=== PATIENT | male | born 1945 | race Caucasian/White ===

== ENCOUNTER 2017-02-24 13:28 | Emergency (ER) | payer MEDICARE, OTHER ==
[2017-02-24] MEDS ORDERED: Metoprolol Tartrate 5 MG/5 ML SDV IVPUSH ONE (13:43)
[2017-02-24] MEDS ORDERED: Famotidine 20 MG/2 ML SDV IVPUSH ONE (13:43)
--- NOTE | 2017-02-24 13:43 | EDM.PDOC ---
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 portable, shows evidence of moderate cardiomegaly associated with moderate COPD changes and probable pulmonary hypertension with mild centralized CHF. Surgical clips noted in the epigastric region with additional status post medial sternotomy. No evidence of significant pulmonary infiltrates, pneumothorax, etc. Departure - Departure Time of Disposition: 18:30 Disposition: DC/Tfer to [facility] 02 Reason for Transfer *Q: Other (cardiology consultation and workup) Condition: Fair Clinical Impression: D-dimer, elevated, IDDM (insulin dependent diabetes mellitus), Hyperuricemia, Hypomagnesemia, Hypoalbuminemia Chest pain Qualifiers: Chest pain type: chest pain due to myocardial ischemia Ischemic chest pain type : unstable angina pectoris Qualified Code(s): I20.0 - Unstable angina Coronary artery disease Qualifiers: Coronary Disease-Associated Artery/Lesion type: bypass graft, autologous vein Associated angina: with unstable angina Qualified Code(s): I25.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 COPD (chronic obstructive pulmonary disease) Qualifiers: COPD type: emphysema Emphysema type: panlobular Qualified Code(s): J43.1 - Panlobular emphysema CHF (congestive heart failure) Qualifiers: Congestive heart failure type: unspecified congestive heart failure type Congestive heart failure chronicity: acute on chronic Qualified Code(s): I50.9 - Heart failure, unspecified Referrals: Sheets-Marsha Vallejo MD [Primary Care Provider] - Forms: ED Department Discharge, Interfacility Transfer EMTALA - Problem List & Annotations (1) Chest pain SNOMED Code(s): 60883588 Code(s): R07.9 - CHEST PAIN, UNSPECIFIED Status: Acute Priority: High Current Visit: Yes Onset Date: 02/24/17 Annotation/Comment:: Chest pain protocol initiated immediately upon patient's arrival to the emergency room. No additional nitroglycerin was given secondary to patient's hypotension with low- dose IV Lopressor given with caution secondary to his cardiac arrhythmia and anginal complaints. Blood pressures remain stable during emergency room care and were improved prior to transfer. Telephone consultation at 15:00 hours with [facility] with subsequent additional telephone consultation at 15:[address] White, hospitalist at [facility], who does accept the patient for direct admission, with no further treatment recommendations given. He is aware about our lack of ambulance availability secondary to another patient being transferred out for cardiac problems. No sequelae from delay in ambulance transfer with safety council director accompaniment. Note that the patient wants to be admitted to a longterm in [place] at discharge so that he can be closer to his son who lives in [place]. He did give up his longterm bed here in [place] Qualifiers: Chest pain type: chest pain due to myocardial ischemia Ischemic chest pain type: unstable angina pectoris Qualified Code(s): I20.0 - Unstable angina (2) CHF (congestive heart failure) SNOMED Code(s): 50349832 Code(s): I50.9 - HEART FAILURE, UNSPECIFIED Status: Chronic Priority: High Current Visit: Yes Onset Date: 02/24/17 Annotation/Comment:: Consider cardiology consultation, echocardiogram, possible repeat heart catheterization, etc. with last heart catheterization about one year ago in [place]. IV Lasix therapy was held until patient's blood pressures improved during the later phases of emergency room care Qualifiers: Congestive heart failure type: unspecified congestive heart failure type Congestive heart failure chronicity: acute on chronic Qualified Code(s): I50.9 - Heart failure, unspecified (3) COPD (chronic obstructive pulmonary disease) SNOMED Code(s): 25208130 Code(s): J44.9 - CHRONIC OBSTRUCTIVE PULMONARY DISEASE, UNSPECIFIED Status : Acute Priority: High Current Visit: Yes Annotation/Comment:: Nebulizer treatment given in the emergency room with some improvement of patient's symptoms. No apparent recent fever or other true bronchitic type symptoms Qualifiers: COPD type: emphysema Emphysema type: panlobular Qualified Code(s): J43.1 - Panlobular emphysema (4) Coronary artery disease SNOMED Code(s): 91857549 Code(s): I25.10 - ATHSCL HEART DISEASE OF [place] CORONARY ARTERY W/O ANG PCTRS Status: Chronic Priority: High Current Visit: Yes Annotation/ Comment:: Note significant heart disease as above. 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 IV access was extremely difficult to obtain and is not suitable for CTA of the chest at our facility. Possible VQ scan at accepting facility. Previous history of recurrent DVTs and PEs as above. Consider venous Doppler studies of the lower extremities (6) Hyperuricemia SNOMED Code(s): 63389452 Code(s): E79.0 - HYPERURICEMIA W/O SIGNS OF INFLAM ARTHRIT AND TOPHACEOUS DIS Status: Acute Priority: Medium Current Visit: Yes Onset Date: Annotation/Comment:: Newly diagnosed. 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 DIRECTED EKG Documentation Completion [RC] ASDIRECTED Oxygen Therapy, ED [RC] CONTINUOUS Peripheral IV Care [RC] . DIRECTED Pulse Oximetry [RC] CONTINUOUS Up With Assistance [RC] PFP Vital Signs [RC] PFP Chest 1V Frontal [CR] Stat Sodium Chloride 0.9% [Saline Flush] 10 ml FLUSH ASDIRECTED PRN Obtain Past Medical Record [OM.PC] Urgent Peripheral IV Insertion Adult [OM.PC] Stat Resuscitation Status Stat 02/24/17 14:31 RT Aerosol Therapy [RC] ASDIRECTED 02/24/17 Breakfast Nothing per Oral Now Diet [DIET] - Assessment/Plan Last 24 Hours: My Active Orders 02/24/17 13:43 Cardiac Monitoring [RC] . DIRECTED EKG Documentation Completion [RC] ASDIRECTED Oxygen Therapy, ED [RC] CONTINUOUS Peripheral IV Care [RC] . DIRECTED Pulse Oximetry [RC] CONTINUOUS Up With Assistance [RC] PFP Vital Signs [RC] PFP Chest 1V Frontal [CR] Stat Sodium Chloride 0.9% [Saline Flush] 10 ml FLUSH ASDIRECTED PRN Obtain Past Medical Record [OM.PC] Urgent Peripheral IV Insertion Adult [OM.PC] Stat Resuscitation Status Stat 02/24/17 14:31 RT Aerosol Therapy [RC] ASDIRECTED 02/24/17 Breakfast Nothing per Oral Now Diet [DIET] Assessment:: As above Plan: As above. Extensive precautions were given to the patient, who is in agreement with the treatment plan.
[2017-02-24] MEDS: Sodium Chloride 0.9% 10 ML Syringe FLUSH PRN ×3 (14:07→16:50)
[2017-02-24] MEDS ORDERED: Albuterol/Ipratropium 3.0-0.5 MG/3 ML Neb Soln NEB ONE (14:31)
[2017-02-24] MEDS ORDERED: Budesonide 0.5 MG/2 ML Neb Susp NEB ONE (14:31)
[2017-02-24 14:40] LABS: CHLORIDE,CL 95 mmol/L (98-107); SODIUM,NA 138 mmol/L (136-145)
[2017-02-24] MEDS ORDERED: Morphine 10 MG/ML Syringe IVPUSH ONE (15:00)
[2017-02-24] MEDS ORDERED: Ondansetron 4 MG/2 ML SDV IVPUSH ONE (15:00)
[2017-02-24] MEDS ORDERED: Morphine 2 MG/ML Syringe IVPUSH ONE (15:45)
[2017-02-24] MEDS ORDERED: Furosemide 40 MG/4 ML VIAL IVPUSH ONE (16:28)
== END 2017-02-24 18:30 ==
LOC: LL.ED 13:28
DX: I25.710 Atherosclerosis of autologous vein coronary artery bypass graft(s) with unstable angina pectoris (principal); J43.1 Panlobular emphysema; I11.0 Hypertensive heart disease with heart failure; I50.9 Heart failure, unspecified; E11.42 Type 2 diabetes mellitus with diabetic polyneuropathy; E79.0 Hyperuricemia without signs of inflammatory arthritis and tophaceous disease; E83.42 Hypomagnesemia; E88.09 Other disorders of plasma-protein metabolism, not elsewhere classified; F32.9 Major depressive disorder, single episode, unspecified; Z95.1 Presence of aortocoronary bypass graft; Z87.891 Personal history of nicotine dependence; Z95.5 Presence of coronary angioplasty implant and graft; Z79.84 Long term (current) use of oral hypoglycemic drugs; Z79.82 Long term (current) use of aspirin; Z79.02 Long term (current) use of antithrombotics/antiplatelets; Z79.899 Other long term (current) drug therapy; Z88.1 Allergy status to other antibiotic agents; Z88.5 Allergy status to narcotic agent; Z88.8 Allergy status to other drugs, medicaments and biological substances
CPT/HCPCS: 36415; 71045; 80053; 82550; 82553; 83605; 83735; 83880; 84443; 84484; 84550; 85025; 85379; 85610; 85730; 93005; 94640; 96374; 96375; 99285; J1940; J2270; J2405; J7050; 93010; J3490; S0028